=== PATIENT | female | born 1985 | race Caucasian/White ===

== ENCOUNTER 2019-06-25 09:19 | Emergency (ER) | payer SELFPAY ==
[~2019-06-25] VITALS: Ht 157.5 cm; Wt 61.4 kg
[~2019-06-25 09:19] MED LIST: BACL10TA PO; OXYC-279 PO
[2019-06-25 09:26] VITALS: Ht 157.5 cm; Wt 61.4 kg
[2019-06-25] MEDS ORDERED: FENTAnyl 50 MCG/ML VIAL IV ONE (10:00)
[2019-06-25 11:56] VITALS: BP 114/74; PULSE 78; RESP 18
[2019-06-25] MEDS ORDERED: HYDROCODONE/APAP (10/325) TAB PO ONE (12:00)
== END 2019-06-25 12:35 | disposition home or self-care (01) ==
LOC: E/R 09:19
DX: S52.611A Displaced fracture of right ulna styloid process, initial encounter for closed fracture (principal); S52.531A Colles' fracture of right radius, initial encounter for closed fracture; M79.631 Pain in right forearm; V49.49XA Driver injured in collision with other motor vehicles in traffic accident, initial encounter
CPT/HCPCS: 36415; 73080; 73090; 73110; 80048; 84703; 85025; 85610; 85730; 96374; 99284; J3010